=== PATIENT | female | born 1930 | race Caucasian/White ===

== ENCOUNTER 2017-09-24 19:45 | Inpatient (IN) | payer OTHER, MEDICARE ==
[~2017-09-24] VITALS: Ht 162.6 cm; Wt 64.5 kg
[~2017-09-24 19:45] MED LIST: ACCUPRIL20 MG PO; ATIVAN0.5 MG PO; AZOPT 1% O200 DROP/1 BOTH EYES; Ativan PO; Azopt 1% Ophth Susp BOTH EYES; COUMADIN2 MG PO; CYANOCOBALAM1000 MCG PO; DAILY VALUE1 EACH PO; FOLIC ACID0.4 MG PO; FOLIC ACID0.8 MG PO; FORTAMET500 M1 PO; Florastor PO; GLUCOPHAGE XR750 MG PO; GLUCOPHAGE850 MG PO; HYDROCHLOROTHIA25 MG PO; HYDROCODON-ACE1 EAC7 PO; Humibid LA,Mucinex PO; IRON PO; IRON325 M1 PO; IRON45 MG PO; LATANOPROST2.5 ML BOTH EYES; LORAZEPAM0.5 MG PO; LUMIGAN 0.50 DROP/2. BOTH EYES; MACRODANTIN100 MG PO; MUCINEX600 MG PO; MULTAQ400 MG PO; MULTIVITAMIN1 EAC2 PO; NORVASC2.5 MG PO; Norvasc PO; OMEPRAZOLE20 MG PO; OSTEO BIFLEX PO; PRILOSEC40 MG PO; TOPROL XL50 MG PO; TRUSOPT5 ML BOTH EYES; Toprol XL PO; VENTOLIN HFA18 GM IH; VITAMIN B12-FO1 EACH PO; VITAMIN D31000 UNIT PO; VOTRIENT200 MG PO; Vantin PO; ZETIA10 MG PO; Zetia PO
[2017-09-24 20:20] LABS: BASOPHIL (%) 0.4 % (0-1); EOSINOPHIL COUNT 0.3 K/uL (0-0.3); HEMATOCRIT 36.4 % (36.0-46.0); HEMOGLOBIN 11.9 G/DL (11.9-15.5); IMMATURE GRANULOCYTE (%) 0.2 % (0.0-0.7); LYMPHOCYTE (%) 23.7 % (15-42); LYMPHOCYTE COUNT 2.1 K/uL (1.0-2.8); MCH 32.9 PG (29.0-34.0); MCHC 32.7 G/DL (30.0-36.0); MCV 100.6 FL (83-99); MONOCYTE (%) 8.8 % (3-12); MONOCYTE COUNT 0.8 K/uL (0-0.8); NEUTROPHIL (%) 63.9 % (45-76); NEUTROPHIL COUNT 5.7 K/uL (1.8-6.4); PLATELET COUNT 193 K/uL (156-360); RBC DIS.WIDTH-CV 13.1 % (11.8-14.6); RBC DIS.WIDTH-SD 48.8 % (39-53); RED BLOOD COUNT 3.62 M/uL (3.80-5.20)
[2017-09-24 20:28] LABS: AMYLASE 41 IU/L (1-118); CHLORIDE 107 mEq/L (99-109); POTASSIUM 4.1 mEq/L (3.7-5.4); SODIUM 138 mEq/L (136-147)
[2017-09-24 20:30] LABS: GLUCOSE 220 mg/dL (70-99)
[2017-09-24 20:33] LABS: SERUM ETHYL ALCOHOL < 10 mg/dL
[2017-09-24 20:34] LABS: CREATININE 1.1 mg/dL (0.6-1.3); GFR ESTIMATE (CALCULATED) 50 mL/min/
[2017-09-24 20:35] LABS: UREA NITROGEN (BUN) 22 mg/dL (9-23)
[2017-09-24 20:37] LABS: LIPASE 66 U/L (1.0-51.0)
[2017-09-24 20:38] LABS: INTER. NORMALIZED RATIO 1.1
[2017-09-24 20:42] LABS: TROP-I INTERPRETATION NEGATIVE; TROPONIN-I < 0.01 ng/mL (0.0-0.30)
[2017-09-24 21:20] LABS: APPEARANCE CLOUDY ((CLEAR)); BILIRUBIN NEGATIVE; BLOOD SMALL; COLOR YELLOW ((YELLOW)); GLUCOSE (STRIP) 50; KETONES NEGATIVE; LEUKOCYTES LARGE; NITRITE NEGATIVE; PROTEIN (STRIP) 30; SPECIFIC GRAVITY 1.025 (1.000-1.030); UROBILINOGEN 0.2 MG/DL (0.2-1.0)
[2017-09-24 21:42] LABS: AMPHETAMINE NEGATIVE (500 ng/mL); BARBITURATES NEGATIVE (200 ng/mL); BENZODIAZEPINES NEGATIVE (150 ng/mL); BUPRENORPHINE NEGATIVE (10 ng/mL); COCAINE NEGATIVE (150 ng/mL); METHADONE NEGATIVE (200 ng/mL); METHAMPHETAMINE NEGATIVE (500 ng/mL); OPIATES (MORPHINE) NEGATIVE (100 ng/mL); OXYCODONE NEGATIVE (100 ng/mL); PHENCYCLIDINE NEGATIVE (25 ng/mL); PROPOXYPHENE NEGATIVE (300 ng/mL); THC CANNABINOIDS NEGATIVE (50 ng/mL); TRICYCLIC ANTIDEPRESSANTS NEGATIVE (300 ng/mL)
[2017-09-24 21:51] LABS: BACTERIA 2+ /HPF; EPITHELIAL CELLS 3+ /HPF; MUCUS NONE SEEN /LPF; UCUL ADDED? YES; WHITE BLOOD CELLS 40-50 /HPF (0-5)
[2017-09-24] MEDS ORDERED: NORVASC5 MG PO (22:32)
[2017-09-24] MEDS ORDERED: GLUCOTROL XL2.5 MG PO (22:33)
[2017-09-24] MEDS ORDERED: NIZORAL SHAMPO120 ML TP (22:33)
[2017-09-24] MEDS ORDERED: ZANTAC150 MG PO (22:33)
[2017-09-24] MEDS ORDERED: ONE DAILY1 EAC3 PO (22:33)
[2017-09-24] MEDS ORDERED: GLUCOPHAGE500 MG PO ×2 (22:34)
[2017-09-24] MEDS ORDERED: TOPROL XL100 MG PO (22:34)
[2017-09-24] MEDS ORDERED: XARELTO20 MG PO (22:35)
[2017-09-24] MEDS ORDERED: FISH OIL 1,0001 EAC7 PO (22:35)
[2017-09-25 07:26] LABS: TROP-I INTERPRETATION NEGATIVE; TROPONIN-I < 0.01 ng/mL (0.0-0.30)
[2017-09-25 08:13] LABS: HDL CHOLESTEROL 37 MG/DL (Desirable>=50); LDL CHOLESTEROL 70 mg/dL (Desirable<100); NON-HDL CHOLESTEROL 84 mg/dL (Desirable<160); TOTAL CHOLESTEROL 121 mg/dL (Desirable<200); TRIGLYCERIDES 69 MG/DL (Normal: <150)
[2017-09-25 12:55] LABS: TROP-I INTERPRETATION NEGATIVE; TROPONIN-I 0.01 ng/mL (0.0-0.30)
[2017-09-25 18:13] VITALS: BP 140/83
[2017-09-25 18:22] VITALS: BP 140/83
[2017-09-25 20:07] VITALS: BP 155/70
[2017-09-25 23:25] VITALS: BP 131/69
[2017-09-26 03:54] VITALS: BP 128/63
[2017-09-26 05:58] LABS: HEMATOCRIT 33.1 % (36.0-46.0); HEMOGLOBIN 10.4 G/DL (11.9-15.5); MCH 32.2 PG (29.0-34.0); MCHC 31.4 G/DL (30.0-36.0); MCV 102.5 FL (83-99); PLATELET COUNT 160 K/uL (156-360); RBC DIS.WIDTH-SD 48.9 % (39-53); RED BLOOD COUNT 3.23 M/uL (3.80-5.20); WHITE BLOOD COUNT 6.6 K/uL (4.1-10.2)
[2017-09-26 06:41] LABS: CHLORIDE 108 MEQ/L (99-109); CREATININE 1.1 MG/DL (0.6-1.3); GFR ESTIMATE (CALCULATED) 50 mL/min/; POTASSIUM 4.6 MEQ/L (3.7-5.4); SODIUM 141 MEQ/L (136-147); UREA NITROGEN (BUN) 17 mg/dL (9-23)
[2017-09-26 06:50] LABS: GLUCOSE 84 mg/dL (70-99)
[2017-09-26 07:17] VITALS: BP 133/65
[2017-09-26 12:00] VITALS: BP 134/64
[2017-09-26 17:44] VITALS: BP 131/66
[2017-09-26 19:22] VITALS: BP 146/65
[2017-09-27] VITALS (7 sets, daily range): BP systolic 131–148; BP diastolic 58–74
[2017-09-27 05:41] LABS: HEMATOCRIT 33.6 % (36.0-46.0); HEMOGLOBIN 10.9 G/DL (11.9-15.5); MCH 32.3 PG (29.0-34.0); MCHC 32.4 G/DL (30.0-36.0); MCV 99.7 FL (83-99); PLATELET COUNT 179 K/uL (156-360); RBC DIS.WIDTH-CV 12.7 % (11.8-14.6); RBC DIS.WIDTH-SD 46.6 % (39-53); RED BLOOD COUNT 3.37 M/uL (3.80-5.20); WHITE BLOOD COUNT 6.5 K/uL (4.1-10.2)
[2017-09-27 06:01] LABS: CHLORIDE 105 MEQ/L (99-109); GFR ESTIMATE (CALCULATED) 56 mL/min/; GLUCOSE 88 mg/dL (70-99); POTASSIUM 4.2 MEQ/L (3.7-5.4); SODIUM 140 MEQ/L (136-147); UREA NITROGEN (BUN) 16 mg/dL (9-23)
[2017-09-28 03:52] VITALS: BP 127/59
[2017-09-28 05:22] LABS: HEMOGLOBIN 11.6 G/DL (11.9-15.5); MCH 32.8 PG (29.0-34.0); MCHC 33.1 G/DL (30.0-36.0); MCV 98.9 FL (83-99); PLATELET COUNT 182 K/uL (156-360); RBC DIS.WIDTH-CV 12.6 % (11.8-14.6); RBC DIS.WIDTH-SD 45.8 % (39-53); RED BLOOD COUNT 3.54 M/uL (3.80-5.20); WHITE BLOOD COUNT 6.2 K/uL (4.1-10.2)
[2017-09-28 06:28] LABS: CHLORIDE 104 MEQ/L (99-109); GFR ESTIMATE (CALCULATED) 56 mL/min/; GLUCOSE 99 mg/dL (70-99); SODIUM 140 MEQ/L (136-147); UREA NITROGEN (BUN) 11 mg/dL (9-23)
[2017-09-28 07:52] VITALS: BP 121/74
[2017-09-28] MEDS ORDERED: DIGOXIN125 MCG PO (10:37)
[2017-09-28] MEDS ORDERED: XARELTO15 MG PO (10:37)
[2017-09-28] MEDS ORDERED: DOCUSATE SODIU100 MG PO (10:38)
[2017-09-28] MEDS ORDERED: ATORVASTATIN CA40 MG PO (10:38)
== END 2017-09-28 13:00 | disposition home or self-care (01) | DRG 69 ==
LOC: EME 19:45 → EDOF 23:43 → 4EAST 23:43 → ENRESERV 23:45 → 4EAST 09-25 17:48
PROVIDERS: Emergency Medicine; Hospitalist; Physician Assistant
PROC: 0DBP8ZX Excision of Rectum, Via Natural or Artificial Opening Endoscopic, Diagnostic (ICD-10-PCS; principal; 2017-09-27)
DX: G45.9 Transient cerebral ischemic attack, unspecified (principal); R47.01 Aphasia; N39.0 Urinary tract infection, site not specified; B96.1 Klebsiella pneumoniae [K. pneumoniae] as the cause of diseases classified elsewhere; K62.1 Rectal polyp; K64.8 Other hemorrhoids; K64.4 Residual hemorrhoidal skin tags; J44.9 Chronic obstructive pulmonary disease, unspecified; I48.2 Chronic atrial fibrillation; E11.9 Type 2 diabetes mellitus without complications; K21.9 Gastro-esophageal reflux disease without esophagitis; D64.9 Anemia, unspecified; E78.00 Pure hypercholesterolemia, unspecified; E78.5 Hyperlipidemia, unspecified; I10 Essential (primary) hypertension; I34.1 Nonrheumatic mitral (valve) prolapse; I35.0 Nonrheumatic aortic (valve) stenosis; F32.9 Major depressive disorder, single episode, unspecified; F41.9 Anxiety disorder, unspecified; G43.909 Migraine, unspecified, not intractable, without status migrainosus; Z90.49 Acquired absence of other specified parts of digestive tract; Z86.73 Personal history of transient ischemic attack (TIA), and cerebral infarction without residual deficits; Z88.1 Allergy status to other antibiotic agents; Z82.3 Family history of stroke; Z85.118 Personal history of other malignant neoplasm of bronchus and lung; Z85.72 Personal history of non-Hodgkin lymphomas; Z86.010 Personal history of colon polyps; Z79.01 Long term (current) use of anticoagulants
CPT/HCPCS: 70450; 70496; 70498; 70551; 80047; 80048; 80061; 81003; 82150; 82272; 82948; 83036; 83690; 84484; 85025; 85027; 85610; 85730; 86850; 86900; 86901; 87077; 87086 GA; 87186; 88305; 92610 GN; 93005; 97530 GP; 99281; 99285; G0480; J1160; J1644; J1815; J1956; J7030

== ENCOUNTER 2017-12-07 09:45 | Day surgery (SDC) | payer OTHER, MEDICARE ==
[~2017-12-07] VITALS: Ht 165.1 cm; Wt 61.7 kg
[~2017-12-07 09:45] MED LIST changes: +ATORVASTATIN CA40 MG PO; +COLACE100 MG PO; +DIGOXIN125 MCG PO; +DOCUSATE SODIU100 MG PO; +FISH OIL 1,0001 EAC7 PO; +GLUCOPHAGE500 MG PO; +GLUCOTROL XL2.5 MG PO; +LANOXIN125 MCG PO; +LASIX20 MG PO; +NIZORAL SHAMPO120 ML TP; +NORVASC5 MG PO; +ONE DAILY1 EAC3 PO; +PRAVACHOL10 MG PO; +TOPROL XL100 MG PO; +XARELTO15 MG PO; +XARELTO20 MG PO; +ZANTAC150 MG PO
[2017-12-07 10:47] VITALS: BP 135/82
[2017-12-07 11:17] VITALS: BP 143/92
[2017-12-07 11:52] LABS: INTER. NORMALIZED RATIO 1.2; PTT 48.1 SEC (25-37)
[2017-12-07 15:05] VITALS: BP 111/62
[2017-12-07 15:56] VITALS: BP 112/72
== END 2017-12-07 16:05 | disposition home or self-care (01) ==
LOC: SDC 09:45
PROVIDERS: Pediatrics; Student in an Organized Health Care Education/Training Program
PROC: 0DBP7ZX Excision of Rectum, Via Natural or Artificial Opening, Diagnostic (ICD-10-PCS; principal; 2017-12-07)
DX: D12.8 Benign neoplasm of rectum (principal); C34.90 Malignant neoplasm of unspecified part of unspecified bronchus or lung; D64.9 Anemia, unspecified; Z86.73 Personal history of transient ischemic attack (TIA), and cerebral infarction without residual deficits; C85.90 Non-Hodgkin lymphoma, unspecified, unspecified site; Z79.01 Long term (current) use of anticoagulants
CPT/HCPCS: 82948; 83880; 85610; 85730; 88305; 93005; J0131; J0690; J2405; J2765; J3010; Q0175